=== PATIENT | male | born 1990 | race American Indian/Alaskan Native ===

== ENCOUNTER 2017-05-16 00:11 | Emergency (ER) | payer SELFPAY ==
--- NOTE | 2017-05-16 00:39 | Emergency Department Report ---
ED ENT HPI - General Chief complaint: Dental/Oral Stated complaint: MOUTH PAIN Time Seen by Provider: 05/16/17 00:24 Source: patient Mode of arrival: Ambulatory Limitations: No Limitations - History of Present Illness Initial comments: This is a 27-year-old male nontoxic, well nourished in appearance, no acute signs of distress presents to the ED with c/o of itching and sore throat and gum swelling/pain x1 week. Patient denies any facial swelling. Denies any nausea , vomiting, hoarseness, fever, chills, nausea, vomiting, just shortness of breath. Denies allergies or PMH. MD complaint: sore throat, other (gum pain ) -: week(s) (1) Location: throat, other (gum pain ) Severity: mild Severity scale (0 -10): 8 Quality: aching, other (itching) Improves with: none Worsens with: none Context- Dental: history of dental caries, poor dental care Associated Symptoms: gum swelling, sore throat. denies: fever, cough, toothache , pain with swallowing, tinnitus, hearing loss, discharge from ear, rhinorrhea - Related Data Previous Rx's Medication Instructions Recorded Last Taken Type Amoxicillin/K Clav Tab [Augmentin 1 tab PO Q12HR #20 tab 05/16/17 Unknown Rx 875 mg] Nystas/Diphen/Xyl Visc/Mylanta 15 ml MM Q8H 10 Days udc 05/16/17 Unknown Rx [Magic Mouthwash] Allergies Allergy/AdvReac Type Severity Reaction Status Date / Time No Known Allergies Allergy Unverified 05/16/17 00:15 ED Dental HPI - General Chief complaint: Dental/Oral Stated complaint: MOUTH PAIN Time Seen by Provider: 05/16/17 00:24 Source: patient Mode of arrival: Ambulatory Limitations: No Limitations - Related Data Previous Rx's Medication Instructions Recorded Last Taken Type Amoxicillin/K Clav Tab [Augmentin 1 tab PO Q12HR #20 tab 05/16/17 Unknown Rx 875 mg] Nystas/Diphen/Xyl Visc/Mylanta 15 ml MM Q8H 10 Days udc 05/16/17 Unknown Rx [Magic Mouthwash] Allergies Allergy/AdvReac Type Severity Reaction Status Date / Time No Known Allergies Allergy Unverified 05/16/17 00:15 ED Review of Systems ROS: Stated complaint: MOUTH PAIN Other details as noted in HPI Constitutional: denies: chills, fever Eyes: denies: eye pain, eye discharge, vision change ENT: throat pain. denies: ear pain Respiratory: denies: cough, shortness of breath, wheezing Cardiovascular: denies: chest pain, palpitations Endocrine: no symptoms reported Gastrointestinal: denies: abdominal pain, nausea, diarrhea Genitourinary: denies: urgency, dysuria, discharge Musculoskeletal: denies: back pain, joint swelling, arthralgia Skin: denies: rash, lesions Neurological: denies: headache, weakness, paresthesias Psychiatric: denies: anxiety, depression Hematological/Lymphatic: denies: easy bleeding, easy bruising ED Past Medical Hx - Past Medical History Previous Medical History?: No - Surgical History Past Surgical History?: No - Social History Smoking Status: Current Every Day Smoker Substance Use Type: Marijuana - Medications Home Medications: Home Medications Medication Instructions Recorded Confirmed Last Taken Type Amoxicillin/K Clav Tab [Augmentin 1 tab PO Q12HR #20 tab 05/16/17 Unknown Rx 875 mg] Nystas/Diphen/Xyl Visc/Mylanta 15 ml MM Q8H 10 Days udc 05/16/17 Unknown Rx [Magic Mouthwash] ED Physical Exam - General Limitations: No Limitations General appearance: alert, in no apparent distress - Head Head exam: Present: atraumatic, normocephalic, normal inspection - Eye Eye exam: Present: normal appearance, PERRL, EOMI. Absent: scleral icterus, conjunctival injection, nystagmus, periorbital swelling, periorbital tenderness Pupils: Present: normal accommodation - ENT ENT exam: Present: mucous membranes moist, TM's normal bilaterally, normal external ear exam - Expanded ENT Exam Expanded Ear exam: Present: normal external inspection Mouth exam: Present: normal external inspection, tongue normal. Absent: drooling, trismus, muffled voice, tongue elevation, laceration Teeth exam: Present: normal inspection, gingival enlargement Throat exam: Positive: tonsillar erythema, other (Uvula midline. No abscess or swelling noted.). Negative: tonsillomegaly, tonsillar exudate, R peritonsillar mass, L peritonsillar mass - Neck Neck exam: Present: normal inspection, full ROM. Absent: tenderness, meningismus, lymphadenopathy, thyromegaly - Respiratory Respiratory exam: Present: normal lung sounds bilaterally. Absent: respiratory distress, wheezes, rales, rhonchi, stridor, chest wall tenderness, accessory muscle use, decreased breath sounds, prolonged expiratory - Cardiovascular Cardiovascular Exam: Present: regular rate, normal rhythm, normal heart sounds. Absent: bradycardia, tachycardia, irregular rhythm, systolic murmur, diastolic murmur, rubs, gallop - GI/Abdominal GI/Abdominal exam: Present: soft, normal bowel sounds - Extremities Exam Extremities exam: Present: normal inspection, full ROM, normal capillary refill. Absent: tenderness, pedal edema, joint swelling, calf tenderness - Back Exam Back exam: Present: normal inspection, full ROM. Absent: tenderness, CVA tenderness (R), CVA tenderness (L), muscle spasm, paraspinal tenderness, vertebral tenderness, rash noted - Neurological Exam Neurological exam: Present: alert, oriented X3, CN II-XII intact, normal gait, reflexes normal - Psychiatric Psychiatric exam: Present: normal affect, normal mood - Skin Skin exam: Present: warm, dry, intact, normal color. Absent: rash ED Course Vital Signs 05/16/17 00:16 Temperature 97.6 F Pulse Rate 63 Respiratory 18 Rate Blood Pressure 102/65 O2 Sat by Pulse 100 Oximetry - Reevaluation(s) Reevaluation #1: 05/16/17 00:37 Patient is speaking in full sentences with no signs of distress noted. ED Medical Decision Making - Medical Decision Making 27-year-old male that presents with oropharynx/tonsilar erythema and gingivitis. Patient is stable and was examined by me. Patient received Lidocaine viscous symptoms of itching and sore throat has subsided and improving. Patient be treated with Augmentin for gingivitis. Patient was instructed to Follow-up with a primary care doctor/dentist in 3-5 days or if symptoms worsen and continue return to emergency room as soon as possible. At time time of discharge, the patient does not seem toxic or ill in appearance. No acute signs of distress noted. Patient agrees to discharge treatment plan of care. No further questions noted by the patient. Critical care attestation.: If time is entered above; I have spent that time in minutes in the direct care of this critically ill patient, excluding procedure time. ED Disposition Clinical Impression: Tonsillar erythema, Oropharynx erythematous, Gingivitis Disposition: TO HOME OR SELFCARE Is pt being admited?: No Does the pt Need Aspirin: No Condition: Stable Additional Instructions: Follow-up with a primary care doctor/dentist in 3-5 days or if symptoms worsen and continue return to emergency room as soon as possible. Prescriptions: Amoxicillin/K Clav Tab [Augmentin 875 mg] 1 tab PO Q12HR #20 tab Nystas/Diphen/Xyl Visc/Mylanta [Magic Mouthwash] 15 ml MM Q8H 10 Days udc Referrals: PRIMARY CAREMD [Referring] - 3-5 Days GENE REED MD [Staff Physician] - 3-5 Days [facility] [Outside] - 3-5 Days Forms: Work/School Release Form(ED)
[2017-05-16] MEDS ORDERED: LIDOCAINE VISCOUS 2% MM ONE (00:45)
[2017-05-16 01:27] VITALS: BP 116/67
== END 2017-05-16 01:27 | disposition home or self-care (01) ==
LOC: EDSEX 00:11 → ED 00:11
DX: L93.2 Other local lupus erythematosus (principal); K05.10 Chronic gingivitis, plaque induced; F17.210 Nicotine dependence, cigarettes, uncomplicated; F12.10 Cannabis abuse, uncomplicated
CPT/HCPCS: 99282

== ENCOUNTER 2017-08-13 03:21 | Emergency (ER) | payer SELFPAY ==
[2017-08-13] MEDS ORDERED: XYLOCAINE 1% 20 mL INFILTRATI ONE (05:15)
[2017-08-13] MEDS ORDERED: XYLOCAINE 2% INFILTRATI ONE ×2 (05:16)
[2017-08-13] MEDS ORDERED: MOTRIN PO ONE (05:48)
--- NOTE | 2017-08-13 06:16 | XRay Report ---
FINAL REPORT EXAM: XR FINGER(S) 2+V LT HISTORY: pain/lac to index TECHNIQUE: Three views of the left index finger were submitted. FINDINGS: There is no overlying bandage in place. There is no evidence of fracture or radiopaque foreign body. IMPRESSION: No evidence of fracture or radiopaque foreign body involving the index finger.
--- NOTE | 2017-08-13 06:21 | Emergency Department Report ---
Chief Complaint: Laceration/Recheck/Suture Stated Complaint: LT HAND LAC Time Seen by Provider: 08/13/17 05:44 - HPI History of Present Illness: 27-year-old male presents with laceration to left finger sustained earlier this morning while cutting a pineapple - ROS Review of Systems: Denies all systems States left index finger pain - Exam Vital Signs: Vital Signs 08/13/17 03:33 Temperature 97.9 F Pulse Rate 88 Respiratory 18 Rate Blood Pressure 104/71 O2 Sat by Pulse 96 Oximetry Physical Exam: HAND: left index finger lac MSE screening note: Focused history and physical exam performed. Due to findings the following was ordered: ED Medical Decision Making - Medical Decision Making 27-year-old male presents with laceration Stable male in no distress Motrin 800 ordered. X-rays of the left hand ordered. Laceration to be repaired by oncoming [facility] ED Disposition for MSE Condition: Stable Referrals: RAUL LOZA MD [Primary Care Provider] - 3-5 Days
[2017-08-13] MEDS ORDERED: BOOSTRIX IM ONE (07:43)
--- NOTE | 2017-08-13 07:48 | Emergency Department Report ---
ED Laceration HPI - HPI Chief Complaint: Laceration/Recheck/Suture Stated Complaint: LT HAND LAC Time Seen by Provider: 08/13/17 05:44 Occurred When: Today Location: Upper Extremity Severity: mild Tetanus Status: Not up to Date Laceration Symptoms: Yes Pain, No Foreign Body Sensation, No Numbness, No Weakness Other History: This is a 27-year-old male nontoxic, well nourished in appearance , no acute signs of distress presents to the ED with c/o of left first digit laceration that occurred this morning around 2 AM. They stated he was a knife cutting a pineapple definitely cut his finger. Patient denies any numbness, tingling, fever, chills, nausea, vomiting, chest pain or shortness breath. Patient denies up-to-date with tetanus. Denies any allergies or significant past medical history. ED Review of Systems ROS: Stated complaint: LT HAND LAC Other details as noted in HPI Constitutional: denies: chills, fever Eyes: denies: eye pain, eye discharge, vision change ENT: denies: ear pain, throat pain Respiratory: denies: cough, shortness of breath, wheezing Cardiovascular: denies: chest pain, palpitations Endocrine: no symptoms reported Gastrointestinal: denies: abdominal pain, nausea, diarrhea Genitourinary: denies: urgency, dysuria Musculoskeletal: denies: back pain, joint swelling, arthralgia Skin: denies: rash, lesions Neurological: denies: headache, weakness, paresthesias Psychiatric: denies: anxiety, depression Hematological/Lymphatic: denies: easy bleeding, easy bruising ED Past Medical Hx - Past Medical History Previous Medical History?: No - Surgical History Past Surgical History?: No - Social History Smoking Status: Current Every Day Smoker Substance Use Type: Alcohol, Marijuana - Medications Home Medications: Home Medications Medication Instructions Recorded Confirmed Last Taken Type Amoxicillin/K Clav Tab [Augmentin 1 tab PO Q12HR #20 tab 05/16/17 Unknown Rx 875 mg] Nystas/Diphen/Xyl Visc/Mylanta 15 ml MM Q8H 10 Days udc 05/16/17 Unknown Rx [Magic Mouthwash] Ibuprofen [Motrin] 600 mg PO Q8H PRN #30 tablet 08/13/17 Unknown Rx Sulfamethoxazole/Trimethoprim 1 each PO BID #14 tablet 08/13/17 Unknown Rx [Bactrim DS TAB] Laceration Physical Exam - Exam General: Vital signs noted. No distress. Alert and acting appropriately. GENERAL: The patient is a well-developed, well-nourished in no apparent distress. Patient is alert and acting appropriately for age. Alert and oriented 3, no apparent distress, normal gait, atraumatic. HEENT: Head is normocephalic and atraumatic. PERRL, Extraocular muscles are intact. Pupils are equal, round, and reactive to light and accommodation. Nares appeared normal. Mouth is well hydrated and without lesions. Mucous membranes are moist. Posterior pharynx clear of any exudate or lesions. Mouth is well hydrated and without lesions. Tonsils not erythematous or swollen. Uvula midline. Tongue elevated. Mucous members are moist. Posterior pharynx clear, no exudate or lesions. Patent airways. NECK: Supple. No carotid bruits. No lymphadenopathy or thyromegaly.nontender. No meningitic signs are noted. LUNGS: Clear to auscultation. Non labor breathing. No intercostal retractions. Symmetrical with respiration, no wheezing, no rales, or crackles. HEART: Regular rate and rhythm without murmur, rubs or gallops. No reproducible. S1, S2 present, regular rate and rhythm without murmur, no rubs, no gallops. ABDOMEN: Soft, nontender, and nondistended. Positive bowel sounds. No hepatosplenomegaly was noted. No guarding or rebound tenderness, negative epigastric bruit. Negative psoas sign, negative monk sign, negative McBurneys sign EXTREMITIES: Without any cyanosis, clubbing, rash, lesions or edema. Peripheral pulses intact. Capillary refill less than 2 seconds. Full range of motion bilaterally. NEUROLOGIC: Cranial nerves II through XII are grossly intact. Alert and oriented x 3. Normal gait. Symmetrical strength and sensation. Reflexes 2+ throughout. Cerebellar testing normal. GCS score of 15. PSYCHIATRIC: Normal affect with no suicidal or homicidal ideations. Skin: 3 cm superficial lac to the left proximal index finger. Laceration Location: Upper Extremity Laceration Exam: Yes Normal Distal CMS, No Foreign Body, No Exposed Tendon, Vessel, or Nerve, No Tendon Injury ED Course Vital Signs 08/13/17 03:33 Temperature 97.9 F Pulse Rate 88 Respiratory 18 Rate Blood Pressure 104/71 O2 Sat by Pulse 96 Oximetry - Reevaluation(s) Reevaluation #1: 08/13/17 07:46 Patient is speaking in full sentences with no signs of distress noted. - Laceration /Wound Repair Left Finger Wound Location: upper extremity (left index finger) Wound's Depth, Shape: superficial Wound Explored: clean Irrigated w/ Saline (ccs): 40 Betadine Prep?: Yes Anesthesia: 1% Lidocaine (2%) Volume Anesthetic (ccs): 3 Wound Debrided: minimal Wound Repaired With: sutures Suture Size/Type: 4:0, proline Number of Sutures: 4 Layer Closure?: No Sterile Dressing Applied?: Yes Progress: Under sterile field, I used Betadine to clean the area. I then used 40 mL of normal saline to flush the area. I then used 2% lidocaine plain and injected 3 mL to the wound. I then used a 4-0 Prolene to suture the laceration. Number of stitches 4. I then applied a sterile 4 x 4 with tape. Minimal bleeding noted but is under control. Patient tolerated procedure well with no signs of distress. ED Medical Decision Making - Medical Decision Making This is a 27-year-old male that presents with laceration. Patient is stable and was examined by me. Xray has been and dictated by radiologist within normal limits. Patient is notified of xray results with no questions noted. Laceration has been sutured Successfully with no signs of distress noted. patient received a tetanus booster in the ED. Patient was instructed to return in 10 days for suture removal. Patient is discharged with Bactrim and Motrin. Patient was instructed to keep proper wound care. At time of discharge , the patient does not seem toxic or ill in appearance. No acute signs of distress noted. Patient agrees to discharge treatment plan of care. No further questions noted by the patient. Critical care attestation.: If time is entered above; I have spent that time in minutes in the direct care of this critically ill patient, excluding procedure time. ED Disposition Clinical Impression: Laceration Disposition: DC-01 TO HOME OR SELFCARE Is pt being admited?: No Does the pt Need Aspirin: No Condition: Stable Instructions: Laceration (ED), Suture Care (ED), Ibuprofen (By mouth), Sulfamethoxazole/Trimethoprim (By mouth) Additional Instructions: Follow-up with a primary care doctor in 3-5 days or if symptoms worsen and continue return to emergency room as soon as possible. Return in 10 days for suture removal Prescriptions: Ibuprofen [Motrin] 600 mg PO Q8H PRN #30 tablet PRN Reason: Pain Sulfamethoxazole/Trimethoprim [Bactrim DS TAB] 1 each PO BID #14 tablet Referrals: RAUL LOZA MD [Primary Care Provider] - 3-5 Days PRIMARY CARE, [Referring] - 3-5 Days [facility] [place] [facility] [place] [Outside] - 3-5 Days [facility] [Outside] - 3-5 Days Forms: Work/School Release Form(ED)
[2017-08-13 08:24] VITALS: BP 112/64
== END 2017-08-13 08:09 | disposition home or self-care (01) ==
LOC: ED 03:21
DX: S61.211A Laceration without foreign body of left index finger without damage to nail, initial encounter (principal); F17.200 Nicotine dependence, unspecified, uncomplicated; F12.10 Cannabis abuse, uncomplicated; W26.0XXA Contact with knife, initial encounter; Y93.89 Activity, other specified; Y92.89 Other specified places as the place of occurrence of the external cause; Y99.8 Other external cause status
CPT/HCPCS: 90471; 90715; 99283

== ENCOUNTER 2019-09-15 14:39 | Emergency (ER) | payer SELFPAY ==
[2019-09-15 16:36] VITALS: BP 114/68
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
== END 2019-09-15 17:00 | disposition left against medical advice (07) ==
LOC: ED 14:39
DX: Z11.3 Encounter for screening for infections with a predominantly sexual mode of transmission (principal)
CPT/HCPCS: 99281

== ENCOUNTER 2020-04-24 16:06 | Emergency (ER) | payer SELFPAY ==
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
[2020-04-24 17:24] VITALS: BP 111/62
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
[2020-04-24] MEDS ORDERED: LIDOCAINE-MPF (1%) 10 MG/1 ML VIAL 5 ML INFILTRATI ONE (18:29)
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
== END 2020-04-24 19:53 | disposition home or self-care (01) ==
LOC: ED 16:06
DX: S61.412A Laceration without foreign body of left hand, initial encounter (principal); S60.412A Abrasion of right middle finger, initial encounter; F17.200 Nicotine dependence, unspecified, uncomplicated; Z79.899 Other long term (current) drug therapy; W50.0XXA Accidental hit or strike by another person, initial encounter; Y93.89 Activity, other specified; Y92.89 Other specified places as the place of occurrence of the external cause; Y99.8 Other external cause status

== ENCOUNTER 2020-08-03 15:16 | Emergency (ER) | payer SELFPAY ==
[2020-08-03 15:50] VITALS: BP 109/77
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
== END 2020-08-03 17:05 | disposition home or self-care (01) ==
LOC: ED 15:16
DX: S13.4XXA Sprain of ligaments of cervical spine, initial encounter (principal); F17.200 Nicotine dependence, unspecified, uncomplicated; Z79.899 Other long term (current) drug therapy; V49.49XA Driver injured in collision with other motor vehicles in traffic accident, initial encounter; Y93.89 Activity, other specified; Y92.488 Other paved roadways as the place of occurrence of the external cause; Y99.8 Other external cause status
CPT/HCPCS: 71046; 72040; 99283